=== PATIENT | female | born 1960 | race Caucasian/White ===

== ENCOUNTER 2025-04-20 15:36 | Inpatient (IN) ==
[2025-04-20 16:25] LABS: Hematocrit (blood only) 38.7 % (37.0-47.0); Hemoglobin 12.9 g/dl (12.0-16.0); Immature Granulocytes # (auto) 0.06 K/uL (0.01-0.20); Immature Granulocytes % (auto) 0.7 %; Mean Corpuscular Hemoglobin 32.3 pg (25.0-34.0); Mean Corpuscular Volume 96.8 fL (80.0-100.0); Platelet Count 221 K/uL (130-400); RDW Standard Deviation 45.7 fL (36.4-46.3); Red Blood Count 4.00 M/uL (4.20-5.40); White Blood Count 8.72 K/ul (4.8-10.8)
[2025-04-20 16:44] LABS: Alanine Aminotransferase 17.0 U/L (7-52); Albumin Globulin Ratio 1.4 (0.9-2); Alkaline Phosphatase 47.0 U/L (34-104); Anion Gap 9.0 (3-11); Bilirubin,Total 0.4 mg/dl (0.2-1.0); Blood Urea Nitrogen 18.0 mg/dl (6-23); Calcium 9.3 mg/dl (8.6-10.3); Carbon Dioxide 27.0 mmol/L (21-32); Chloride 102.0 mmol/L (98-107); Creatinine Clr Calc Pharmacy 82.1 ml/min; Globulin 3.0 gm/dl (2.5-4.0); Glucose 106.0 mg/dl (70-99(Fasting)); Potassium 4.2 mmol/L (3.5-5.1); Sodium 138.0 mmol/L (136-145); Total Protein 7.3 gm/dl (6.0-8.3)
--- NOTE | 2025-04-20 16:55 | XRay Report ---
Clinical History: Chest pain and dizziness Technique: A frontal view of the chest was obtained Comparison is made to the prior examination dated 09/01/2023 Findings: There are no confluent pulmonary infiltrates. The heart size is within normal limits. No pleural effusion or pneumothorax is seen. There is no definite pulmonary nodule. No fracture is noted. No foreign body is seen Impression: No active disease Electronically signed by Primitivo Mathis 04-20-2025 4:55 PM
[2025-04-20 17:03] LABS: INR 0.9 (0.9-1.1); Partial Thromboplastin Time 23 Seconds (21-31); Prothrombin Time 10.0 Seconds (9.0-12.0)
--- NOTE | 2025-04-20 18:05 | Emergency Department Note ---
Impression & Plan Facial numbness, Chest pressure, SOB (shortness of breath) ED Provider Note NAME: GAYE MAN AGE: 64 SEX: Female INFORMANT: Patient ED PROVIDER(S): Dwight Daily MD CHIEF COMPLAINT: Facial numbness PLAN: Disposition: Admitted Outpatient prescription management: none Referral: None MEDICAL DECISION MAKING: Patient presented because of facial numbness and chest discomfort. Workup was initiated. CBC and chemistry panels were unremarkable. ECG cardiac troponin negative. Patient underwent CT and CT angiography. No acute neurologic process identified. Patient has a nonfocal examination at this time. No TNK indicated. Given the strokelike neurologic symptoms, significant blood pressure elevation and chest discomfort further evaluation and management in the hospital was felt to be appropriate. Consultation was made with the hospitalist service. Patient was evaluated in the ER admitted for further management. Care/management discussed with: house manager Level of care consideration(s): After review of the information above and other included data, I feel the patient requires escalation of care to admission Triage Nursing notes: reviewed and agree them. Vital Signs: reviewed and remarkable for hypertension Additional History obtained from: none Chronic Medical/Social Conditions affecting care: none Prior/ Outside/ External records reviewed: none Differential Diagnosis: CVA, TIA,Infection, dehydration, metabolic abnormality, hypo/hyperglycemia, electrolyte disturbance, anemia, hypoxia, cardiac sources, intracerebral event, toxicologic, neurologic, as well as other pathologies. Diagnostics, independently interpreted by me: ECG: Twelve-lead ECG reveals normal sinus rhythm at 71 beats per minute. No evidence of pericarditis, ischemia, ectopy, or dysrhythmia. Cardiac Monitoring: Cardiac monitoring ordered by me: The patient was placed on continuous cardiac monitoring and observed. It revealed a normal sinus rhythm at 75 beats per minute without ectopy or evidence of dysrhythmia. Medical decision rules: none Imaging studies: Chest x-ray. Findings: A chest x-ray was performed and revealed no pneumothorax, effusion, infiltrate, pulmonary edema, free air under the diaphragm, or wide mediastinum. Impression: No acute disease. Head CT: A noncontrast CT scan of the head was performed and was negative for tumor, fracture, intracranial hemorrhage, or other acute pathology. I refer you to the EMR for further details. HPI: 64 year old Female arrives for evaluation of facial numbness. This started today at 2pm, lasting 5 minutes and is resolved. The patient also notes the following associated symptoms, chest pressure, SOB, brain fog. The patient has taken no medication for relieving factors. Current pain is rated as 0/10. Pt denies LOC, headache, fevers, chills, diaphoresis, visual changes, neck pain, nausea, vomiting, abdominal pain, back pain, melena, hematochezia, urinary symptoms, weakness, lymphadenopathy, rash, or other complaints. . PAST MEDICAL HISTORY: See Below, HTN PAST SURGICAL HISTORY: See Below, SOCIAL HISTORY: See Below, HOME MEDICATIONS: See Below ALLERGIES: See Below VITALS: See Below PHYSICAL EXAMINATION: GENERAL: Awake, alert, well-appearing, in no distress HENT: Normocephalic, atraumatic. Oropharynx unremarkable. EYES: Normal conjunctiva. Sclera non-icteric. PERRL, EOMI NECK: Inspection normal. Non-tender. Supple. No nuchal rigidity. FROM. No masses. RESPIRATORY: Clear to auscultation. No wheezes. No rales. Normal respiratory effort. CARDIAC: Normal rate. Normal rhythm. No murmurs. No rubs. Extremities warm and well perfused. Pulses equal. No JVD. GI: Soft, non-distended. No tenderness to palpation. No rebound or guarding. No masses. RECTAL: Deferred. MUSCULOSKELETAL: Atraumatic. Chest examination reveals no tenderness. The back is symmetrical on inspection without obvious abnormality. There is no CVA tenderness to palpation. No joint edema. LOWER EXTREMITIES: Calves are equal size bilaterally and non-tender. No edema. No discoloration. NEURO: Normal sensorium. No sensory or motor deficits noted. CN 2-12 intact, speech normal, normal WILTON SKIN: No rash or jaundice noted. PROCEDURES: none CRITICAL CARE: none OBSERVATION NOTE: none Past Med/Surg History Problem List (Updated 04/21/25 @ 08:57 by Stan Robledo MD) Panic attacks Stroke-like symptoms SOB (shortness of breath) (Acute) Chest pressure (Acute) Facial numbness (Acute) Dyslipidemia Hypertension Medical History Dyslipidemia Hypertension History of seizures as a child Seizure-like activity Mandibular bony exostosis Surgical History S/P carpal tunnel release S/P section S/P hysterectomy Family History Mother Dementia Hypertension Hyperlipidemia Sister Myocardial infarction Father , suicide No problems noted. 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 Beliefs That Will Affect Care: None Current Living Situation: Spouse Feels Safe at Home: Yes Assistive Devices: None Allergies Allergies Allergy/AdvReac Type Severity Reaction Status Date / Time Hydantoins Allergy Unknown Verified 04/20/25 19:15 phenytoin Allergy Unknown Verified 04/20/25 19:15 Home Meds Home Medications Medication Instructions Recorded Confirmed ibuprofen 200 mg tablet (Advil) 400 mg PO Q6H PRN Pain 04/02/23 04/20/25 melatonin 5 mg tablet 5 mg PO HS 04/02/23 04/20/25 calcium carbonate 500 mg PO DAILY 04/20/25 04/20/25 cetirizine 10 mg tablet (Zyrtec) 10 mg PO DAILY 04/20/25 04/20/25 cranberry extract 500 mg capsule 0 mg PO DAILY 04/20/25 04/20/25 (Cranberry Concentrate) lisinopril 10 1 tab PO QAM 04/20/25 04/20/25 mg-hydrochlorothiazide 12.5 mg tablet montelukast 10 mg tablet 10 mg PO QAM 04/20/25 04/20/25 Previous Rx's Medication Instructions Recorded amlodipine 5 mg tablet 5 mg PO DAILY #30 tabs 04/21/25 escitalopram oxalate 5 mg tablet 5 mg PO DAILY #30 tabs 04/21/25 (Lexapro) Results & Data (ED) Vital Signs Vital Signs - 24 hr 04/20/25 15:38 04/20/25 16:45 04/20/25 16:45 Temperature 36.9 C Temperature Source Temporal Artery Scan Pulse Rate 84 Pulse Rate [Right Finger] 77 Pulse Rhythm [Right Finger] Regular Pulse Strength [Right Finger] Normal Respiratory Rate 17 15 Respiratory Effort / Characteristics Non-Labored Spontaneous Non-Labored Respiratory Depth Normal Normal Respiratory Pattern Regular Regular Blood Pressure 174/82 H Blood Pressure [Right Arm] 201/85 H Blood Pressure Mean 112 Blood Pressure Mean [Right Arm] 123 Blood Pressure Position Sitting Blood Pressure Position [Right Arm] Lying Pulse Oximetry 96 95 95 Oxygen Delivery Method Room Air Room Air Room Air Sepsis Recent Fever Within 48 Hours No Sepsis New/Unexplained Change in Mental Status N/A Sepsis Action Taken by Nursing No Action Required 04/20/25 17:46 04/20/25 18:04 04/20/25 19:00 Temperature Temperature Source Pulse Rate 79 Pulse Rate [Right Finger] 85 Pulse Rhythm [Right Finger] Regular Pulse Strength [Right Finger] Normal Respiratory Rate 16 Respiratory Effort / Characteristics Non-Labored Respiratory Depth Normal Respiratory Pattern Regular Blood Pressure Blood Pressure [Right Arm] 197/101 H Blood Pressure Mean Blood Pressure Mean [Right Arm] 133 Blood Pressure Position Blood Pressure Position [Right Arm] Lying Pulse Oximetry 97 Oxygen Delivery Method Room Air Room Air Sepsis Recent Fever Within 48 Hours Sepsis New/Unexplained Change in Mental Status Sepsis Action Taken by Nursing 04/20/25 19:00 Temperature Temperature Source Pulse Rate Pulse Rate [Right Finger] 80 Pulse Rhythm [Right Finger] Regular Pulse Strength [Right Finger] Normal Respiratory Rate 17 Respiratory Effort / Characteristics Non-Labored Spontaneous Respiratory Depth Normal Respiratory Pattern Regular Blood Pressure Blood Pressure [Right Arm] 180/107 H Blood Pressure Mean Blood Pressure Mean [Right Arm] 131 Blood Pressure Position Blood Pressure Position [Right Arm] Lying Pulse Oximetry 98 Oxygen Delivery Method Room Air Sepsis Recent Fever Within 48 Hours Sepsis New/Unexplained Change in Mental Status Sepsis Action Taken by Nursing Laboratory Data 04/21/25 05:16 04/21/25 05:16 Lab Results 04/20/25 Range/Units 16:09 WBC 8.72 (4.8-10.8) K/ul RBC 4.00 L (4.20-5.40) M/uL Hgb 12.9 (12.0-16.0) g/dl Hct 38.7 (37.0-47.0) % MCV 96.8 (80.0-100.0) fL MCH 32.3 (25.0-34.0) pg MCHC 33.3 (32.0-36.0) g/dL RDW Std Deviation 45.7 (36.4-46.3) fL RDW Coeff of Marely 12.9 (11.5-14.5) % Plt Count 221 (130-400) K/uL MPV 10.7 (9.4-12.4) fL Immature Gran % (Auto) 0.7 % Neut % (Auto) 81.5 % Lymph % (Auto) 11.4 % Sutter % (Auto) 5.4 % Eos % (Auto) 0.5 % Baso % (Auto) 0.5 % Neut # (Auto) 7.12 H (1.40-6.50) K/uL Lymph # (Auto) 0.99 L (1.20-3.40) K/uL Sutter # (Auto) 0.47 (0.11-0.59) K/uL Eos # (Auto) 0.04 (0.00-0.50) K/uL Baso # (Auto) 0.04 (0.00-0.20) K/uL Immature Gran # (Auto) 0.06 (0.01-0.20) K/uL PT 10.0 (9.0-12.0) Seconds INR 0.9 (0.9-1.1) APTT 23 (21-31) Seconds PTT Ratio 0.9 Sodium 138 (136-145) mmol/L Potassium 4.2 (3.5-5.1) mmol/L Chloride 102 (98-107) mmol/L Carbon Dioxide 27 (21-32) mmol/L Anion Gap 9 (3-11) BUN 18 (6-23) mg/dl Creatinine 0.64 (0.6-1.2) mg/dl Est Cr Clr Drug Dosing 82.1 ml/min eGFR 99.86 BUN/Creatinine Ratio 28.1 H (10-20) Glucose 106 H (70-99(Fasting)) mg/dl Calcium 9.3 (8.6-10.3) mg/dl Total Bilirubin 0.4 (0.2-1.0) mg/dl AST 17 (13-39) U/L ALT 17 (7-52) U/L Alkaline Phosphatase 47 (34-104) U/L Troponin I High Sens 6.5 (0-14) pg/ml Total Protein 7.3 (6.0-8.3) gm/dl Albumin 4.3 (3.4-5.0) gm/dl Globulin 3.0 (2.5-4.0) gm/dl Albumin/Globulin Ratio 1.4 (0.9-2) Lyme Disease Screen Negative (Negative) Administered Medications Discontinued Medications Aspirin (Aspirin 81 Mg Ectab) 81 mg PO QAM [facility] [place] Stop: 05/21/25 08:59 Last Admin: 04/21/25 09:56 Dose: 81 mg Documented By: MAJO Calcium Carbonate (Calcium Carbonate 1250mg Tab) 1 tab PO DAILY [place] Stop: 05/21/25 08:59 Last Admin: 04/21/25 08:55 Dose: 1 tab Documented By: MAJO Cetirizine HCl (Cetirizine Hcl 10 Mg Tablet) 10 mg PO DAILY [place] Stop: 05/21/25 08:59 Last Admin: 04/21/25 08:55 Dose: 10 mg Documented By: MAJO Gadobutrol (Gadobutrol 65ml Vial) 6.5 ml IV ONCE ONE Stop: 04/20/25 21:55 Last Admin: 04/20/25 21:54 Dose: 6.5 ml Documented By: BLAISE Lisinopril/HCTZ (Lisinopril/Hctz 10/12.5mg Tab) 1 tab PO QAM [facility] [place] Stop: 05/21/25 08:59 Last Admin: 04/21/25 08:55 Dose: 1 tab Documented By: MAJO Sodium Chloride (Nss) 1,000 mls @ 80 mls/hr IV .[id number] [place] Stop: 04/21/25 09:29 Last Infusion: 04/21/25 09:55 Dose: Infused Documented By: Admin: 04/20/25 21:23 Dose: 80 mls/hr Documented By: NOEMY Ioversol (Optiray 320 125ml) 119 ml IV ONCE ONE Stop: 04/20/25 18:31 Last Admin: 04/20/25 18:30 Dose: 119 ml Documented By: MURRAY Melatonin (Melatonin 3 Mg Tab) Confirm Administered Dose 6 mg PO .STK-MED ONE Stop: 04/20/25 23:07 Last Admin: 04/20/25 23:10 Dose: 6 mg Documented By: NOEMY Montelukast Sodium (Montelukast Sodium 10 Mg Tablet) [facility] Stop: 05/21/25 08:59 Last Admin: 04/21/25 08:56 Dose: 10 mg Documented By: MAJO Imaging Data Radiologist's Impression: Chest X-Ray 04/20/25 15:45 Clinical History: Chest pain and dizziness Technique: A frontal view of the chest was obtained Comparison is made to the prior examination dated 09/01/2023 Findings: There are no confluent pulmonary infiltrates. The heart size is within normal limits. No pleural effusion or pneumothorax is seen. There is no definite pulmonary nodule. No fracture is noted. No foreign body is seen Impression: No active disease Electronically signed by Primitivo Mathis 04-20-2025 4:55 PM Discharge Plan Visit Data Chief Complaint: Neuro Symptoms/Deficit Stated Complaint: DIZZY, NUMB DROOPY FACE, TINGLING ED Provider: Dwight Daily Discharge Problem: Facial numbness, Chest pressure, SOB (shortness of breath) Patient Disposition: Admitted As Inpatient Condition: Good Discharge Instructions Interventions: ED Discharge Assessment Last Done: 04/20/25 20:47
[2025-04-20] MEDS: OPTIRAY 320 125ml IV ONE (18:30)
--- NOTE | 2025-04-20 18:52 | CT Scan Report ---
Technique: Axial computed tomography images were obtained of the brain before and after the administration of intravenous contrast according to the CT angiogram protocol Findings: The visualized internal carotid arteries appear normal No definite stenosis or aneurysm is seen of the anterior, middle, or posterior cerebral artery circulations. 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 The remainder of the right posterior cerebral artery is supplied through the posterior communicating artery. The visualized vertebral arteries and the basilar artery appear unremarkable Impression: No definite stenosis or aneurysm of the intracranial arteries Electronically signed by Primitivo Mathis 04-20-2025 6:52 PM
--- NOTE | 2025-04-20 18:54 | CT Scan Report ---
Technique: Axial computed tomography images were obtained of the neck after the administration of intravenous contrast according to the CT angiogram protocol Findings: No stenosis is seen of the common carotid arteries bilaterally. There is plaque within the carotid bulbs bilaterally, without significant stenosis. The remainder of the internal carotid arteries appear patent bilaterally. No stenosis of the external carotid arteries is seen The vertebral arteries are patent bilaterally with no significant stenosis seen. The visualized thoracic aorta appears unremarkable There is multilevel degenerative disc disease and osteoarthritis of the cervical spine. Impression: No definite stenosis of the neck arteries Electronically signed by Primitivo Mathis 04-20-2025 6:53 PM
--- NOTE | 2025-04-20 20:09 | History & Physical Report ---
Date of Service April 20, 2025 Assessment & Plan (1) Stroke-like symptoms: Plan: 64-year-old female with past medical history significant for hyperlipidemia, chronic rhinitis, hypertension, irritable bowel syndrome, chronic diarrhea, GERD, chronic pain of right knee, history of epilepsy, IgA deficiency, depression, anxiety attack, history of diverticulitis presents with facial numbness. Patient states since last 2 years she is having on and off dizziness and facial numbness. But today the episode was more severe with starting with dizziness in the morning and with facial numbness and the numbness was traveling down into her arms and it was on and off had 3 episodes today that the reason she came to the ER. Had palpitations during the episode. Denies any headache. Had some blurred vision during episode. No headache. No runny nose or sore throat. No cough. No fevers. No difficulty swallowing. Appetite is okay. She also having on and off slight chest tightness. Has some shortness of breath on exertion. No nausea. No abdominal pain. Normal bowel and bladder movements. Ambulates okay. Currently resting comfortably and hemodynamically stable. Strokelike symptoms Came with facial numbness and numbness traveling to the down to the both arms. And dizziness. On and off. Initial workup with CTA head and neck unremarkable Passed swallow evaluation Will do full stroke workup with MRI scan, echo, neurochecks PT OT evaluation Placed on aspirin. Will follow HbA1c andLipid profile Close monitoring telemetry Neuroevaluation a.m. Elevated blood pressure Patient feels some dizziness facial numbness and palpitations Symptoms for 2 years but got worse today Has some chest tightness on and off and shortness of breath on exertion Possible uncontrolled blood pressure contributing to symptoms Continue home lisinopril hydrochlorothiazide iv Labetalol as needed Follow echo and serial cardiac enzymes and repeat EKG if any concerns will consult cardiology Hyperlipidemia Not on meds Will follow lipid profile DVT prophylaxis SCDs for now Disposition Telemetry Full code History of Present Illness Chief Complaint: Strokelike symptoms Primary Care Provider: Chely Sheth PA-C 64-year-old female with past medical history significant for hyperlipidemia, chronic rhinitis, hypertension, irritable bowel syndrome, chronic diarrhea, GERD, chronic pain of right knee, history of epilepsy, IgA deficiency, depression, anxiety attack, history of diverticulitis presents with facial numbness. Patient states since last 2 years she is having on and off dizziness and facial numbness. But today the episode was more severe with starting with dizziness in the morning and with facial numbness and the numbness was traveling down into her arms and it was on and off had 3 episodes today that the reason she came to the ER. Had palpitations during the episode. Denies any headache. Had some blurred vision during episode. No headache. No runny nose or sore throat. No cough. No fevers. No difficulty swallowing. Appetite is okay. She also having on and off slight chest tightness. Has some shortness of breath on exertion. No nausea. No abdominal pain. Normal bowel and bladder movements. Ambulates okay. Currently resting comfortably and hemodynamically stable. Past medical history. As mentioned above Past surgical history. Breast biopsy left side. Carpal tunnel surgery. Colonoscopy and EGD. x 2. Robotic laparoscopic sigmoid resection. Bilateral cataracts. Total abdominal hysterectomy with removal of tubes. Social history. . No smoking. Alcohol occasional. No drug use. Family history. Maternal cousin had colon cancer. Maternal uncle had colon cancer. Father had heart disorder. Mother had hyperlipidemia. Hypertension. Obesity. Sister had uterine cancer. Sister had heart attack. Allergies Allergy/AdvReac Type Severity Reaction Status Date / Time Hydantoins Allergy Unknown Verified 04/20/25 19:15 phenytoin Allergy Unknown Verified 04/20/25 19:15 Home Medications Medication Instructions Recorded Confirmed Type ibuprofen 200 mg tablet (Advil) 400 mg PO Q6H PRN Pain 04/02/23 04/20/25 History lactobacillus combination no.4 3 3,000 mmu cells PO QAM 04/02/23 04/20/25 History billion cell capsule (Probiotic) melatonin 5 mg tablet 5 mg PO HS 04/02/23 04/20/25 History calcium carbonate 500 mg PO DAILY 04/20/25 04/20/25 History cetirizine 10 mg tablet (Zyrtec) 10 mg PO DAILY 04/20/25 04/20/25 History cranberry extract 500 mg capsule 0 mg PO DAILY 04/20/25 04/20/25 History (Cranberry Concentrate) lisinopril 10 1 tab PO QAM 04/20/25 04/20/25 History mg-hydrochlorothiazide 12.5 mg tablet montelukast 10 mg tablet 10 mg PO QAM 04/20/25 04/20/25 History Past Med/Surg History Problem List (Updated 04/20/25 @ 20:11 by Larry Franklin MD) Stroke-like symptoms SOB (shortness of breath) (Acute) Chest pressure (Acute) Facial numbness (Acute) Dyslipidemia Hypertension Medical History Dyslipidemia Hypertension History of seizures as a child Seizure-like activity Mandibular bony exostosis Surgical History S/P carpal tunnel release S/P section S/P hysterectomy Family History Mother Dementia Hypertension Hyperlipidemia Sister Myocardial infarction Father , suicide No problems noted. Grandfather (Paternal) Myocardial infarction Grandfather (Maternal) Myocardial infarction Grandmother (Maternal) Myocardial infarction Social History Smoking Status: Never smoker Second Hand Exposure: No; Do You Dip or Chew Tobacco: No; Tobacco Cessation Education Requested by Patient: No Hx Alcohol Use: Yes Alcohol type: beer Hx Substance Use: No Preferred Language: German Communication Ability: Effective Health Science Instructor Required: No Beliefs That Will Affect Care: None Current Living Situation: Spouse Other Information That Helps Us Care for You: No Feels Safe at Home: Yes Safety Concerns: Feels Safe At This Time Assistive Devices: None Review of Systems Review of Systems: All systems reviewed & are unremarkable except as noted in HPI & below Physical Exam Physical Exam: General-Not in distress Head- atraumatic Eyes- PERRL. ENT- oropharynx clear Neck- supple, no JVD. Lungs- clear to auscultation no wheezing or crackles Heart- regular rate and rhythm; no murmur, no gallop. Abdomen- normal bowel sounds, soft, nontender, no distension Extremities- no pretibial edema, no erythema seen Neuro- alert, oriented PERRL, no facial palsy; no dysarthria; motor 5/5 bilaterally; no pronator drift, co ordination of movements normal, sensations intact, position sense intact Skin- warm & dry Results & Data Results & Data Vital Signs (Past 12 Hours) Vital Signs Temp Pulse Pulse Resp BP BP Pulse Ox 04/20/25 18:04 85 16 197/101 H 97 04/20/25 17:46 79 04/20/25 16:45 95 04/20/25 16:45 77 15 201/85 H 95 04/20/25 15:38 36.9 C 84 17 174/82 H 96 O2 Del Method 04/20/25 18:04 Room Air 04/20/25 17:46 04/20/25 16:45 Room Air 04/20/25 16:45 Room Air 04/20/25 15:38 Room Air Diagnostic Findings Laboratory Results WBC 8.72 K/ul (4.8-10.8) 04/20/25 16:09 RBC 4.00 M/uL (4.20-5.40) L 04/20/25 16:09 Hgb 12.9 g/dl (12.0-16.0) 04/20/25 16:09 Hct 38.7 % (37.0-47.0) 04/20/25 16:09 MCV 96.8 fL (80.0-100.0) 04/20/25 16:09 MCH 32.3 pg (25.0-34.0) 04/20/25 16:09 MCHC 33.3 g/dL (32.0-36.0) 04/20/25 16:09 RDW Std Deviation 45.7 fL (36.4-46.3) 04/20/25 16:09 RDW Coeff of Marely 12.9 % (11.5-14.5) 04/20/25 16:09 Plt Count 221 K/uL (130-400) 04/20/25 16:09 MPV 10.7 fL (9.4-12.4) 04/20/25 16:09 Immature Gran % (Auto) 0.7 % 04/20/25 16:09 Neut % (Auto) 81.5 % 04/20/25 16:09 Lymph % (Auto) 11.4 % 04/20/25 16:09 Moore % (Auto) 5.4 % 04/20/25 16:09 Eos % (Auto) 0.5 % 04/20/25 16:09 Baso % (Auto) 0.5 % 04/20/25 16:09 Neut # (Auto) 7.12 K/uL (1.40-6.50) H 04/20/25 16:09 Lymph # (Auto) 0.99 K/uL (1.20-3.40) L 04/20/25 16:09 Moore # (Auto) 0.47 K/uL (0.11-0.59) 04/20/25 16:09 Eos # (Auto) 0.04 K/uL (0.00-0.50) 04/20/25 16:09 Baso # (Auto) 0.04 K/uL (0.00-0.20) 04/20/25 16:09 Immature Gran # (Auto) 0.06 K/uL (0.01-0.20) 04/20/25 16:09 PT 10.0 Seconds (9.0-12.0) 04/20/25 16:09 INR 0.9 (0.9-1.1) 04/20/25 16:09 APTT 23 Seconds (21-31) 04/20/25 16:09 PTT Ratio 0.9 04/20/25 16:09 Sodium 138 mmol/L (136-145) 04/20/25 16:09 Potassium 4.2 mmol/L (3.5-5.1) 04/20/25 16:09 Chloride 102 mmol/L (98-107) 04/20/25 16:09 Carbon Dioxide 27 mmol/L (21-32) 04/20/25 16:09 Anion Gap 9 (3-11) 04/20/25 16:09 BUN 18 mg/dl (6-23) 04/20/25 16:09 Creatinine 0.64 mg/dl (0.6-1.2) 04/20/25 16:09 Est Cr Clr Drug Dosing 82.1 ml/min 04/20/25 16:09 eGFR 99.86 04/20/25 16:09 BUN/Creatinine Ratio 28.1 (10-20) H 04/20/25 16:09 Glucose 106 mg/dl (70-99(Fasting)) H 04/20/25 16:09 Calcium 9.3 mg/dl (8.6-10.3) 04/20/25 16:09 Total Bilirubin 0.4 mg/dl (0.2-1.0) 04/20/25 16:09 AST 17 U/L (13-39) 04/20/25 16:09 ALT 17 U/L (7-52) 04/20/25 16:09 Alkaline Phosphatase 47 U/L (34-104) 04/20/25 16:09 Troponin I High Sens 6.5 pg/ml (0-14) 04/20/25 16:09 Total Protein 7.3 gm/dl (6.0-8.3) 04/20/25 16:09 Albumin 4.3 gm/dl (3.4-5.0) 04/20/25 16:09 Globulin 3.0 gm/dl (2.5-4.0) 04/20/25 16:09 Albumin/Globulin Ratio 1.4 (0.9-2) 04/20/25 16:09 Lyme Disease Screen Negative (Negative) 04/20/25 16:09 Impressions Chest X-Ray 04/20/25 15:45 Clinical History: Chest pain and dizziness Technique: A frontal view of the chest was obtained Comparison is made to the prior examination dated 09/01/2023 Findings: There are no confluent pulmonary infiltrates. The heart size is within normal limits. No pleural effusion or pneumothorax is seen. There is no definite pulmonary nodule. No fracture is noted. No foreign body is seen Impression: No active disease Electronically signed by Primitivo Mathis 04-20-2025 4:55 PM Head CTA 04/20/25 18:05 Technique: Axial computed tomography images were obtained of the brain before and after the administration of intravenous contrast according to the CT angiogram protocol Findings: The visualized internal carotid arteries appear normal No definite stenosis or aneurysm is seen of the anterior, middle, or posterior cerebral artery circulations. 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 The remainder of the right posterior cerebral artery is supplied through the posterior communicating artery. The visualized vertebral arteries and the basilar artery appear unremarkable Impression: No definite stenosis or aneurysm of the intracranial arteries Electronically signed by Primitivo Mathis 04-20-2025 6:52 PM Neck CTA 04/20/25 18:05 Technique: Axial computed tomography images were obtained of the neck after the administration of intravenous contrast according to the CT angiogram protocol Findings: No stenosis is seen of the common carotid arteries bilaterally. There is plaque within the carotid bulbs bilaterally, without significant stenosis. The remainder of the internal carotid arteries appear patent bilaterally. No stenosis of the external carotid arteries is seen The vertebral arteries are patent bilaterally with no significant stenosis seen. The visualized thoracic aorta appears unremarkable There is multilevel degenerative disc disease and osteoarthritis of the cervical spine. Impression: No definite stenosis of the neck arteries Electronically signed by Primitivo Mathis 04-20-2025 6:53 PM ECG Additional Comments: ECG. Normal sinus rhythm rate of 71. No acute ST changes seen. QTc 421 Code Status & VTE Plan VTE Prophylaxis Plan VTE Prophylaxis will be ordered: Yes
[2025-04-20] MEDS ORDERED: NITROGLYCERIN SL 0.4 MG/TAB TAB SL PRN (21:00)
[2025-04-20] MEDS ORDERED: PHARMACIST DISCHARGE MED REC CONSULT PRN (21:00)
[2025-04-20] MEDS ORDERED: LABETALOL HCL IV 5 MG/ML 20ML IV PRN (21:00)
[2025-04-20] MEDS ORDERED: POLYETHYLENE (MIRALAX) 17 GM PACK PO PRN (21:00)
[2025-04-20] MEDS ORDERED: ACETAMINOPHEN 325 MG TAB PO PRN (21:00)
[2025-04-20] MEDS: SODIUM CHLORIDE 0.9% 1,000 ML IV SCH (21:23)
[2025-04-20] MEDS: GADOBUTROL 65ML VIAL IV ONE (21:54)
[2025-04-20] MEDS: MELATONIN 3 MG TAB PO ONE (23:10)
--- NOTE | 2025-04-21 02:18 | Magnetic Resonance Report ---
Exam(s): MRI HEAD W/WO Contrast IV Amt: 6.5ml gadavist EXAM: MR Head Without and With Intravenous Contrast CLINICAL HISTORY: Reason for exam: stroke like symptoms. TECHNIQUE: Magnetic resonance images of the head/brain without and with intravenous contrast in multiple planes. CONTRAST: Patient received 6.5ml gadavist of IV contrast COMPARISON: Prior head CT from April 20, 2025. FINDINGS: Brain: Mild nonspecific white matter changes. No mass. No hemorrhage. No acute infarct. The flow voids at the base the brain are intact. No evidence of abnormal enhancement. The dural venous sinuses are patent. No evidence of mesial temporal sclerosis, heterotopic borrero matter or cortical dysplasia. Ventricles: Unremarkable. No ventriculomegaly. Bones/joints: Unremarkable. No acute fracture. Sinuses: Unremarkable as visualized. No acute sinusitis. Mastoid air cells: Unremarkable as visualized. No mastoid effusion. Orbits: Bilateral lens replacements. IMPRESSION: No evidence of acute intracranial pathology. Electronically signed by: Pearl Davis MD 04/21/25 02:18 AM
[2025-04-21 03:10] VITALS: RESP 18; O2SAT 97
[2025-04-21 05:39] LABS: Hematocrit (blood only) 36.3 % (37.0-47.0); Hemoglobin 12.3 g/dl (12.0-16.0); Immature Granulocytes # (auto) 0.04 K/uL (0.01-0.20); Immature Granulocytes % (auto) 0.6 %; Mean Corpuscular Hemoglobin 32.9 pg (25.0-34.0); Mean Corpuscular Volume 97.1 fL (80.0-100.0); Platelet Count 210 K/uL (130-400); RDW Standard Deviation 45.9 fL (36.4-46.3); Red Blood Count 3.74 M/uL (4.20-5.40); White Blood Count 7.06 K/ul (4.8-10.8)
[2025-04-21 05:55] LABS: Anion Gap 8.0 (3-11); Blood Urea Nitrogen 14.0 mg/dl (6-23); Calcium 9.2 mg/dl (8.6-10.3); Carbon Dioxide 27.0 mmol/L (21-32); Chloride 104.0 mmol/L (98-107); Cholesterol 238.0 mg/dl (0-200); Creatinine Clr Calc Pharmacy 83.5 ml/min; Glucose 99.0 mg/dl (70-99(Fasting)); HDL Cholesterol 68.0 mg/dl; Potassium 3.8 mmol/L (3.5-5.1); Sodium 139.0 mmol/L (136-145); Triglycerides 169.0 mg/dl (0-150)
[2025-04-21 07:37] LABS: Hemoglobin A1C 5.9 % (4.5-5.6)
[2025-04-21 08:18] VITALS: BP 146/75; TEMP 97.9
[2025-04-21] MEDS: CETIRIZINE HCL 10 MG TABLET PO SCH (08:55)
[2025-04-21] MEDS: LISINOPRIL/HCTZ 10/12.5MG TAB PO SCH (08:55)
[2025-04-21] MEDS: CALCIUM CARBONATE 1250MG TAB PO SCH (08:55)
[2025-04-21] MEDS: MONTELUKAST SODIUM 10 MG TABLET PO SCH (08:56)
--- NOTE | 2025-04-21 09:04 | Neurology Consultation ---
Date of Consultation April 21, 2025 Assessment & Plan (1) Panic attacks: Santos Samuels is a 64 yo F presenting with attacks of bilateral facial numbness and heart palpitations. 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 No further neurologic workup indicated. After completion of the cardiac workup, if negative, the likely diagnosis is panic disorder. Please contact us with any further questions, can follow with PCP. Telehealth Consultation Telehealth Information Telehealth Information: I performed this visit using a real-time telehealth connection between my location and the patients location ([facility]). After connecting through interactive tele-video, patient was identified by name and date of and/or wristband check.Patient (or authorized healthcare risk control field representative) was informed that this was a telemedicine visit and it was being conducted confidentially over secure lines. My office door was closed and no one else was present in the room with me.Patient (or authorized healthcare risk control field representative) provided consent to proceed with the visit, expressed an understanding of privacy and security of the telemedicine visit, and gave permission to have a hospital risk control field representative in the room in order to assist with the visit and to conduct portions of the visit, as needed. I informed the patient (or authorized healthcare risk control field representative) that I reviewed their record and presented the opportunity for them to ask any questions regarding the visit today. The patient agreed to participate. History of Present Illness Reason for Consultation: Facial numbness Attending Physician: Ruben Torre MD History of Present Illness Santos Samuels is a 64 yo F presenting with episodes that wake her from sleep with pounding chest, heart racing and bilateral facial numbness. The attacks seem to occur at quiet times like when she is sitting waiting or at night. She is able to control them by deep breathing and mental reassurance. She is concerned that this could indicate a problem with the brain or heart and was admitted to [facility] for further workup. Allergies Allergy/AdvReac Type Severity Reaction Status Date / Time Hydantoins Allergy Unknown Verified 04/20/25 19:15 phenytoin Allergy Unknown Verified 04/20/25 19:15 Home Medications Medication Instructions Recorded Confirmed Type ibuprofen 200 mg tablet (Advil) 400 mg PO Q6H PRN Pain 04/02/23 04/20/25 History lactobacillus combination no.4 3 3,000 mmu cells PO QAM 04/02/23 04/20/25 History billion cell capsule (Probiotic) melatonin 5 mg tablet 5 mg PO HS 04/02/23 04/20/25 History calcium carbonate 500 mg PO DAILY 04/20/25 04/20/25 History cetirizine 10 mg tablet (Zyrtec) 10 mg PO DAILY 04/20/25 04/20/25 History cranberry extract 500 mg capsule 0 mg PO DAILY 04/20/25 04/20/25 History (Cranberry Concentrate) lisinopril 10 1 tab PO QAM 04/20/25 04/20/25 History mg-hydrochlorothiazide 12.5 mg tablet montelukast 10 mg tablet 10 mg PO QAM 04/20/25 04/20/25 History Patient History Medical History Dyslipidemia Hypertension History of seizures as a child Seizure-like activity Mandibular bony exostosis Surgical History S/P carpal tunnel release S/P section S/P hysterectomy Family History Mother Dementia Hypertension Hyperlipidemia Sister Myocardial infarction Father , suicide No problems noted. Grandfather (Paternal) Myocardial infarction Grandfather (Maternal) Myocardial infarction Grandmother (Maternal) Myocardial infarction Social History Smoking Status: Never smoker Second Hand Exposure: No; Do You Dip or Chew Tobacco: No; Tobacco Cessation Education Requested by Patient: No Hx Alcohol Use: Yes Alcohol type: beer Hx Substance Use: No Preferred Language: Italian Communication Ability: Effective Insurance Claim Auditor Required: No Beliefs That Will Affect Care: None Current Living Situation: Spouse Other Information That Helps Us Care for You: No Feels Safe at Home: Yes Safety Concerns: Feels Safe At This Time Assistive Devices: None Review of Systems +palpitations Physical Exam Awake and alert, speech clear and fluent, no facial asymmetry. Antigravity strength throughout. Results & Data Vital Signs (Past 12 Hours) Vital Signs Temp Pulse Resp BP Pulse Ox O2 Del Method 04/21/25 08:16 36.6 C 79 18 146/75 H 97 Room Air 04/21/25 02:43 36.9 C 72 18 142/77 H 97 Room Air 04/20/25 23:12 70 151/85 H 04/20/25 21:25 83 16 171/83 H 94 Room Air 04/20/25 21:00 36.8 C 86 16 195/83 H 98 Room Air Laboratory Results Abnormal lab results 04/20/25 04/21/25 Range/Units 16:09 05:16 RBC 4.00 L 3.74 L (4.20-5.40) M/uL Hct 36.3 L (37.0-47.0) % Neut # (Auto) 7.12 H (1.40-6.50) K/uL Lymph # (Auto) 0.99 L (1.20-3.40) K/uL BUN/Creatinine Ratio 28.1 H 22.2 H (10-20) Glucose 106 H (70-99(Fasting)) mg/dl Hemoglobin A1c 5.9 H (4.5-5.6) % Triglycerides 169 H (0-150) mg/dl Cholesterol 238 H (0-200) mg/dl VLDL Cholesterol, Calc 34 H (0-30) mg/dl Diagnostic Findings MRI Brain and CTA head and neck unremarkable
[2025-04-21] MEDS: ASPIRIN 81 MG ECTAB PO SCH (09:56)
[2025-04-21] MEDS ORDERED: STROKE PATIENT DISCHARGE STA (10:16)
[2025-04-21 11:33] VITALS: PULSE 79
--- NOTE | 2025-04-21 11:41 | Discharge Summary ---
Discharge Summary Date of Service April 21, 2025 Principal Dx & Hospital Course #1 = Principal Diagnosis (1) Stroke-like symptoms: 64-year-old female with past medical history significant for hyperlipidemia, chronic rhinitis, hypertension, irritable bowel syndrome, chronic diarrhea, GERD, chronic pain of right knee, history of epilepsy, IgA deficiency, depression, anxiety attack, history of diverticulitis presents with facial numbness. Patient states since last 2 years she is having on and off dizziness and facial numbness. But today the episode was more severe with starting with dizziness in the morning and with facial numbness and the numbness was traveling down into her arms and it was on and off had 3 episodes today that the reason she came to the ER. Had palpitations during the episode. Denies any headache. Had some blurred vision during episode. No headache. No runny nose or sore throat. No cough. No fevers. No difficulty swallowing. Appetite is okay. She also having on and off slight chest tightness. Has some shortness of breath on exertion. No nausea. No abdominal pain. Normal bowel and bladder movements. Ambulates okay. Currently resting comfortably and hemodynamically stable. Strokelike symptoms Panic Disorder ROLO -neuro eval, appreciate recs, feel likely panic disorder -MR head WNL -discussed with patient, start lexapro 5mg in morning, follow up with PCP outpatient Primary Hypertension -Patient feels some dizziness facial numbness and palpitations -Symptoms for 2 years but got worse today -Continue home lisinopril hydrochlorothiazide -start amlodopine 5mg Hyperlipidemia Not on meds Will follow lipid profile Notes For Next Care Provider 64-year-old female with past medical history significant for hyperlipidemia, chronic rhinitis, hypertension, irritable bowel syndrome, chronic diarrhea, GERD, chronic pain of right knee, history of epilepsy, IgA deficiency, depression, anxiety attack, history of diverticulitis presents with facial numbness. ADmitted for stroke like symptoms. On medicine, MRI and other imaging unremarkable. Neurology consulted, feel anxiety related. Lexapro 5mg started for anxiety. On 04/21/2025 patient medically stable for discharge home. To do: [ ] f/u echo results [ ] titrate lexapro to effect Medication Changes From Visit -see below Admission HPI Per Admitting Provider 64-year-old female with past medical history significant for hyperlipidemia, chronic rhinitis, hypertension, irritable bowel syndrome, chronic diarrhea, GERD, chronic pain of right knee, history of epilepsy, IgA deficiency, depression, anxiety attack, history of diverticulitis presents with facial numbness. Patient states since last 2 years she is having on and off dizziness and facial numbness. But today the episode was more severe with starting with dizziness in the morning and with facial numbness and the numbness was traveling down into her arms and it was on and off had 3 episodes today that the reason she came to the ER. Had palpitations during the episode. Denies any headache. Had some blurred vision during episode. No headache. No runny nose or sore throat. No cough. No fevers. No difficulty swallowing. Appetite is okay. She also having on and off slight chest tightness. Has some shortness of breath on exertion. No nausea. No abdominal pain. Normal bowel and bladder movements. Ambulates okay. Currently resting comfortably and hemodynamically stable. Past medical history. As mentioned above Past surgical history. Breast biopsy left side. Carpal tunnel surgery. Colonoscopy and EGD. x 2. Robotic laparoscopic sigmoid resection. Bilateral cataracts. Total abdominal hysterectomy with removal of tubes. Social history. . No smoking. Alcohol occasional. No drug use. Family history. Maternal cousin had colon cancer. Maternal uncle had colon cancer. Father had heart disorder. Mother had hyperlipidemia. Hypertension. Obesity. Sister had uterine cancer. Sister had heart attack. Discharge Exam Gen: A&O 3 NAD HEENT: NCAT, EOMI, not icteric. External ears normal. No rhinorrhea. Moist mucous membranes. Neck: Supple, full range of motion, no observable masses, No meningeal sign. Lungs: No Respiratory distress. CV: RRR, no edema. Abdomen: Soft, nondistended, No rebound tenderness. MSK: No joint swelling, no redness. Skin: No rashes, petechiae, lesions. Normal color per patient. Neuro: Normal Gait, Grossly intact. Psych: anxious appearing (shaking legs/hands, nervous) Updated Medication List Medication Instructions Recorded Confirmed Type ibuprofen 200 mg tablet (Advil) 400 mg PO Q6H PRN Pain 04/02/23 04/20/25 History melatonin 5 mg tablet 5 mg PO HS 04/02/23 04/20/25 History calcium carbonate 500 mg PO DAILY 04/20/25 04/20/25 History cetirizine 10 mg tablet (Zyrtec) 10 mg PO DAILY 04/20/25 04/20/25 History cranberry extract 500 mg capsule 0 mg PO DAILY 04/20/25 04/20/25 History (Cranberry Concentrate) lisinopril 10 1 tab PO QAM 04/20/25 04/20/25 History mg-hydrochlorothiazide 12.5 mg tablet montelukast 10 mg tablet 10 mg PO QAM 04/20/25 04/20/25 History amlodipine 5 mg tablet 5 mg PO DAILY #30 tabs 04/21/25 Rx escitalopram oxalate 5 mg tablet 5 mg PO DAILY #30 tabs 04/21/25 Rx (Lexapro) Hospital Stay Data Consultations 04/20/25 19:27 ED Decision to Admit Stat 04/20/25 19:39 ED Decision to Admit Stat 04/21/25 07:41 Consult Neurology Routine Diagnostic Imagining Performed 04/20/25 18:05 CT angio head wo/w Stat CT angio neck with con Stat 04/20/25 21:00 MR brain wo/w con Urgent Pending Results Patient Have Any Pending Studies at Discharge: No Discharge Instructions Given to Patient (Per Discharging Provider) 1. Please follow up with PCP for monitoring of lexapro. 2. Please stay hydrated! Total Time Total Time Spent Total Time Spent (In Minutes): I spent a total of 35 minutes in direct patient care, including [id number] time with the patient and/or family, reviewing medical records, ordering and reviewing diagnostic tests, and coordinating care with other healthcare providers. This time includes: history taking, physical examination, medical decision making, counseling, ECG interpretation, imaging interpretation, lab interpretation, orders, and education, excluding time spent in the performance of separately billed services.
[2025-04-21] MEDS ORDERED: MELATONIN 3 MG TAB PO SCH (21:00)
--- NOTE | 2025-04-23 22:20 | Electrocardiogram Report ---
Test Reason : Blood Pressure : */* mmHG Vent. Rate : 71 BPM Atrial Rate : 71 BPM P-R Int : 136 ms QRS Dur : 76 ms QT Int : 388 ms P-R-T Axes : 54 12 40 degrees QTcB Int : 421 ms Normal sinus rhythm Normal ECG When compared with ECG of 01-Sep-2023 20:51, No significant change Confirmed by Igor Rodriguez ([id number]) on 04/23/2025 10:20:08 PM Referred By: REFERRED SELF Confirmed By: Igor Rodriguez
== END 2025-04-21 14:12 | disposition home or self-care (01) | DRG 880 ==
LOC: ED 15:36 → 2S 19:53 → SUATTDRO 19:53 → 2S 20:47
DX: Z80.0 Family history of malignant neoplasm of digestive organs; K21.9 Gastro-esophageal reflux disease without esophagitis; G40.909 Epilepsy, unspecified, not intractable, without status epilepticus; F41.0 Panic disorder [episodic paroxysmal anxiety]; E78.5 Hyperlipidemia, unspecified; R20.0 Anesthesia of skin; D80.2 Selective deficiency of immunoglobulin A [IgA]; F41.1 Generalized anxiety disorder; R00.2 Palpitations; E66.9 Obesity, unspecified; R07.89 Other chest pain; I10 Essential (primary) hypertension; K58.9 Irritable bowel syndrome, unspecified